=== PATIENT | male | born 1950 | race Caucasian/White ===

== ENCOUNTER 2021-05-12 11:15 | Emergency (ER) | payer OTHER ==
[~2021-05-12 11:15] MED LIST: ATROVENT HFA12.9 GM INH; CALTRATE 600 +1 EAC1 PO; CLARITIN10 M2 PO; FENOFIBRATE54 MG PO; FLONASE 0.05% N16 GM; GLIPIZIDE5 MG PO; GLUCOPHAGE1000 MG PO; METOPROLOL SUCC25 MG PO; TIZANIDINE HCL2 MG PO; TYLENOL 500 MG500 MG PO; ZANTAC150 MG PO; ZESTRIL 40 MG T40 MG PO; ZOCOR40 MG PO
[2021-05-12 12:45] LABS: HEMOGLOBIN 14.1 gm/dl (14.0-17.5); RED BLOOD COUNT 4.7 M/UL (4.20-5.50)
[2021-05-12 13:18] LABS: BUN/CREATININE RATIO 14 (0-10)
== END 2021-05-12 16:45 | disposition home or self-care (01) ==
LOC: ER1 11:15
PROVIDERS: Family Medicine
DX: U07.1 COVID-19 (principal); I10 Essential (primary) hypertension; E11.9 Type 2 diabetes mellitus without complications; R53.1 Weakness; E86.0 Dehydration
CPT/HCPCS: 70450; 71045; 80053; 81001; 82550; 82553; 83605; 83874; 84439; 84443; 84484; 85025; 85610; 86140; 93005; 99285; U0002

== ENCOUNTER → 2021-05-15 | Outpatient (CLI) | payer OTHER ==
[~2021-05-15] VITALS: Ht 167.6 cm; Wt 106.6 kg
== END ==
LOC: EROP 14:09
DX: U07.1 COVID-19 (principal); Z23 Encounter for immunization; E11.9 Type 2 diabetes mellitus without complications; I10 Essential (primary) hypertension; J98.9 Respiratory disorder, unspecified
CPT/HCPCS: M0247; Q0247